=== PATIENT | female | born 1995 | race Caucasian/White ===

== ENCOUNTER 2018-04-30 23:59 | Inpatient (IN) | payer MEDICAID ==
[~2018-04-30] VITALS: Ht 152.4 cm; Wt 56.7 kg
[~2018-04-30 23:59] MED LIST: CEFD300C37 PO; IBUP-1222 PO; ONDA4TAB7 PO; OXYC-302 PO; PREN1TAB60 PO; TRAM1TAB6 PO
[2018-05-01] MEDS ORDERED: ONDANSETRON 2MG/ML, 2ML ONE (00:08)
[2018-05-01] MEDS ORDERED: BIRTH CONTROL (00:11)
[2018-05-01] MEDS ORDERED: DEPRESSION MED (00:11)
[2018-05-01 00:15] LABS: BASOPHILS # (AUTO) 0.04 x10^3/uL (0-0.1); BASOPHILS % (AUTO) 0 % (0-1); EOSINOPHILS % (AUTO) 1 % (1-7); LYMPHOCYTES # (AUTO) 4.85 x10^3/uL (1-3.4); LYMPHOCYTES % (AUTO) 38 % (22-44); MD NO; MEAN CORPUSCULAR HEMOGLOBIN 29.5 pg (27.0-34.8); MEAN CORPUSCULAR HGB CONC 33.6 g/dL (32.4-35.8); MONOCYTES % (AUTO) 5 % (2-9); NEUTROPHILS # (AUTO) 7.05 x10^3/uL (1.8-6.8); NEUTROPHILS % (AUTO) 56 % (42-75); PLATELET COUNT 261 x10^3/uL (130-400); RED BLOOD COUNT 4.25 x10^6/uL (3.82-5.3); RED CELL DISTRIBUTION WIDTH 11.8 % (9.6-15.2)
[2018-05-01] MEDS ORDERED: MORPHINE SULFATE 4 MG/ML, 1ML ONE (00:24)
[2018-05-01 00:26] LABS: ALANINE AMINOTRANSFERASE 18 U/L (12-78); ALBUMIN 3.3 g/dL (3.4-5.0); ANION GAP 7 mmol/L (5-15); CALCIUM 8.3 mg/dL (8.5-10.1); CHLORIDE 109 mmol/L (98-107); CREATININE 0.68 mg/dL (0.55-1.02)
[2018-05-01] MEDS ORDERED: MORPHINE SULFATE 4 MG/ML, 1ML IVPush PRN (00:30)
[2018-05-01] MEDS ORDERED: ONDANSETRON 2MG/ML, 2ML IVPush ONE (00:30)
[2018-05-01 00:31] LABS: ALKALINE PHOSPHATASE 53 U/L (45-117); BILIRUBIN,TOTAL 0.2 mg/dL (0.2-1.0); TOTAL PROTEIN 6.6 g/dL (6.4-8.2)
[2018-05-01] MEDS ORDERED: POTASSIUM CHLORIDE 20 MEQ TAB.ER.PRT ONE (00:49)
[2018-05-01] MEDS ORDERED: POTASSIUM CHLORIDE 20 MEQ TAB.ER.PRT PO ONE ×2 (01:00→03:00)
[2018-05-01 01:14] LABS: MICROSCOPIC AUTO
[2018-05-01 01:24] LABS: CULTURE INDICATED? YES
[2018-05-01] MEDS ORDERED: SODIUM CHLORIDE 0.9% 1,000ML IVBOLUS ONE ×2 (01:30→02:00)
[2018-05-01] MEDS ORDERED: CEFTRIAXONE PMX 1GM/50ML 50 ML ONE (01:52)
[2018-05-01] MEDS ORDERED: CEFTRIAXONE 1,000 MG in SODIUM CHLORIDE 0.9% 50 ML IV SCH (02:00)
[2018-05-01] MEDS ORDERED: POLYETHYLENE GLYCOL 17 GM PACKET PO PRN (03:00)
[2018-05-01] MEDS ORDERED: BISACODYL 10 MG SUPP PR PRN (03:00)
[2018-05-01] MEDS ORDERED: ONDANSETRON 2MG/ML, 2ML IVPush PRN (03:00)
[2018-05-01] MEDS ORDERED: ACETAMINOPHEN 325 MG TABLET PO PRN (03:00)
[2018-05-01] MEDS ORDERED: hydrALAzine 20 MG/ML, 1ML IVPush PRN (03:00)
[2018-05-01] MEDS ORDERED: morphine SULFATE 10 MG/ML, 1ML IVPush PRN (03:00)
[2018-05-01] MEDS ORDERED: ONDANSETRON ODT 4 MG PO PRN (03:00)
[2018-05-01] MEDS ORDERED: DOCUSATE 100 MG CAPSULE PO PRN (03:00)
[2018-05-01 03:03] VITALS: BP 107/69
[2018-05-01 03:13] LABS: FREE T4 (FREE THYROXINE) 0.94 ng/dL (0.76-1.46); THYROID STIMULATING HORMONE 4.12 mIU/L (0.358-3.740)
[2018-05-01] MEDS: SODIUM CHLORIDE 0.9% 1,000 ML IV SCH ×3 (03:32→18:21)
[2018-05-01] MEDS: HEPARIN 5,000 UNITS/ML, 1ML SQ SCH ×3 (03:33→20:26)
[2018-05-01 03:39] LABS: HEMOGLOBIN A1C 4.6 % (4.2-6.3)
[2018-05-01] MEDS ORDERED: OMNIPAQUE 350 MG/ML, 100ML BOTTLE ONE (04:46)
[2018-05-01 07:05] VITALS: BP 101/53
[2018-05-01] MEDS ORDERED: SERTRALINE 50MG TABLET PO SCH ×2 (09:00→21:00)
[2018-05-01] MEDS: OXYcodone/APAP 5/325MG TABLET PO PRN ×2 (13:03→18:20)
[2018-05-01 13:55] VITALS: BP 101/61
[2018-05-01 20:00] VITALS: BP 103/62
[2018-05-02] MEDS: OXYcodone/APAP 5/325MG TABLET PO PRN ×2 (01:28→09:32)
[2018-05-02 02:00] VITALS: BP 109/73
[2018-05-02] MEDS ORDERED: CEFTRIAXONE PMX 2GM/50ML 50 ML IV SCH (03:00)
[2018-05-02] MEDS ORDERED: CEFTRIAXONE 2 GM in SODIUM CHLORIDE 0.9% 50 ML IVPB SCH (03:00)
[2018-05-02] MEDS: SODIUM CHLORIDE 0.9% 1,000 ML IV SCH (04:35)
[2018-05-02] MEDS: HEPARIN 5,000 UNITS/ML, 1ML SQ SCH ×2 (04:36→13:00)
[2018-05-02 05:11] LABS: ALANINE AMINOTRANSFERASE 14 U/L (12-78); ALBUMIN 2.6 g/dL (3.4-5.0); ANION GAP 11 mmol/L (5-15); CALCIUM 7.9 mg/dL (8.5-10.1); CHLORIDE 113 mmol/L (98-107); CHOLESTEROL, TOTAL 109 mg/dL (140-239)
[2018-05-02 05:13] LABS: ALKALINE PHOSPHATASE 47 U/L (45-117); BILIRUBIN,TOTAL 0.2 mg/dL (0.2-1.0); CHOL/HDL RATIO 4.4; HDL CHOL % 23 % (28-40); HDL CHOLESTEROL (DIRECT) 25 mg/dL (40-60); LDL CHOLESTEROL,CALCULATED 50 mg/dL (54-169); TOTAL PROTEIN 5.8 g/dL (6.4-8.2); TRIGLYCERIDES 170 mg/dL (50-200); VLDL CHOLESTEROL 34 mg/dL (0-25)
[2018-05-02 05:26] LABS: BASOPHILS # (AUTO) 0.03 x10^3/uL (0-0.1); BASOPHILS % (AUTO) 1 % (0-1); EOSINOPHILS # (AUTO) 0.06 x10^3/uL (0-0.4); EOSINOPHILS % (AUTO) 1 % (1-7); LYMPHOCYTES # (AUTO) 3.03 x10^3/uL (1-3.4); LYMPHOCYTES % (AUTO) 42 % (22-44); MD NO; MEAN CORPUSCULAR HGB CONC 33.8 g/dL (32.4-35.8); MEAN CORPUSCULAR VOLUME 88.6 fL (80-100); MEAN PLATELET VOLUME 7.7 fL (7.4-10.4); MONOCYTES # (AUTO) 0.47 x10^3/uL (0.2-0.8); MONOCYTES % (AUTO) 7 % (2-9); NEUTROPHILS # (AUTO) 3.63 x10^3/uL (1.8-6.8); NEUTROPHILS % (AUTO) 50 % (42-75); PLATELET COUNT 182 x10^3/uL (130-400); RED BLOOD COUNT 3.79 x10^6/uL (3.82-5.3); RED CELL DISTRIBUTION WIDTH 12.3 % (9.6-15.2)
[2018-05-02 07:30] VITALS: BP 103/66
[2018-05-02 13:48] VITALS: BP 115/66
[2018-05-02] MEDS ORDERED: CEPH-368 PO (14:11)
== END 2018-05-02 15:20 | disposition home or self-care (01) | DRG 872 ==
LOC: ED 23:59 → EDIP 05-01 02:17 → 4WST 05-01 03:00 → DCLOUNGE 05-02 15:00
PROVIDERS: ADMIT Internal Medicine; ATTEND Internal Medicine
DX: A41.9 Sepsis, unspecified organism (principal); E44.0 Moderate protein-calorie malnutrition; N13.6 Pyonephrosis; R17 Unspecified jaundice; D25.9 Leiomyoma of uterus, unspecified; E87.6 Hypokalemia; F32.9 Major depressive disorder, single episode, unspecified; H91.90 Unspecified hearing loss, unspecified ear; K82.8 Other specified diseases of gallbladder; R65.20 Severe sepsis without septic shock; Z68.24 Body mass index [BMI] 24.0-24.9, adult; Z87.730 Personal history of (corrected) cleft lip and palate
CPT/HCPCS: 36415; 74177; 80053; 80061; 81001; 83036; 83605; 83735; 84145; 84439; 84443; 84702; 85025; 87040; 87077; 87086; 87186; 96361; 96365; 96375; J0696; J1644; J2405; Q9967; J7030